=== PATIENT | male | born 1950 | race Caucasian/White ===

== ENCOUNTER → 2018-06-27 | Outpatient (CLI) | payer MEDICARE ==
--- NOTE | 2018-06-27 11:52 | ECHOS ---
STRESS ECHOCARDIOGRAM INDICATIONS: Palpitations/shortness of breath. MEDICATIONS: Levothyroxine. BASELINE HEART RATE: 64 BASELINE BLOOD PRESSURE: 141/76 MAXIMUM HEART RATE: 138 MAXIMUM BLOOD PRESSURE: 194/63 85% MPHR: 128 100% MPHR: 150 METS: 7.7 MAXIMUM STAGE REACHED: 3 TOTAL EXERCISE TIME: 6:30 CLINICAL INFORMATION: Baseline EKG shows sinus rhythm, normal axis, normal intervals. Patient exercised on Donn protocol for a total of 6.5 minutes achieving 8 METs, 92% of predicted maximal heart rate without chest pain or diagnostic ST-segment depression. Baseline echo shows normal left ventricular size wall motion systolic function. Postexercise, there is normal hyperdynamic response of all segments of myocardium noted and contrast agent was used to improve endocardial visualization. CONCLUSION: 1. Above-average exercise tolerance. 2. Negative stress test by EKG criteria. 3. Negative stress echo. MMREMINGTONL / IJN: [id number] /
--- NOTE | 2018-06-27 12:51 | ECHOF ---
Referral Reason:R00.2 Palpitations MEASUREMENTS -------- HEIGHT: 190.5 cm WEIGHT: 127.0 kg BP: 141/76 RVIDd: 2.8 cm (< 3.3) IVSd: 1.1 cm (0.6 - 1.1) LVIDd: 4.5 cm (3.9 - 5.3) LVPWd: 1.1 cm (0.6 - 1.1) IVSs: 1.3 cm LVIDs: 2.4 cm LVPWs: 1.3 cm LAESV Index (A-L): 29.92 ml/m Ao Diam: 4.5 cm (2.0 - 3.7) AV Cusp: 2.5 cm (1.5 - 2.6) LA Diam: 4.1 cm (2.7 - 3.8) MV E Johnathan: 0.64 m/s MV DecT: 253 ms MV A Johnathan: 0.52 m/s MV E/A Ratio: 1.22 AR PHT: 693 ms RAP: 5.00 mmHg RVSP: 23.84 mmHg FINDINGS -------- Sinus rhythm. This was a technically difficult study with suboptimal views. The left ventricular size is normal. There is borderline concentric left ventricular hypertrophy. Overall left ventricular systolic function is normal with, an EF between 55 - 60 %. The right ventricle is normal in size and function. LA is midly dilated 29-33ml/m2. The right atrium is normal in size. 5 ml of Lumason was utilized for enhancement of images. Aortic valve is trileaflet and is mildly thickened. There is mild aortic regurgitation. There is no evidence of aortic stenosis. The mitral valve leaflets are mildly thickened. There is trace to mild mitral regurgitation. Trace tricuspid regurgitation present. Right ventricular systolic pressure is normal at < 35 mmHg. There is no evidence of pulmonary hypertension. Trace/mild (physiologic) pulmonic regurgitation. The aortic root is mildy dilated, up to 4.0 cm. IVC Not well visulized. There is no pericardial effusion. CONCLUSIONS -------- 1. Sinus rhythm. 2. This was a technically difficult study with suboptimal views. 3. The left ventricular size is normal. 4. There is borderline concentric left ventricular hypertrophy. 5. Overall left ventricular systolic function is normal with, an EF between 55 - 60 %. 6. LA is midly dilated 29-33ml/m2. 7. 5 ml of Lumason was utilized for enhancement of images. 8. Aortic valve is trileaflet and is mildly thickened. 9. There is mild aortic regurgitation. 10. The mitral valve leaflets are mildly thickened. 11. There is trace to mild mitral regurgitation. 12. Trace tricuspid regurgitation present. 13. Right ventricular systolic pressure is normal at < 35 mmHg. 14. There is no evidence of pulmonary hypertension. 15. Trace/mild (physiologic) pulmonic regurgitation. 16. The aortic root is mildy dilated, up to 4.0 cm. 17. IVC Not well visulized. 18. There is no pericardial effusion. CANDLE CUTTER: Napoleon Avila RDCS
== END | disposition home or self-care (01) ==
LOC: RADECHMAIN 09:37
PROVIDERS: ATTEND Family Medicine
DX: I08.0 Rheumatic disorders of both mitral and aortic valves (principal); R00.2 Palpitations
CPT/HCPCS: C8929; C8930; Q9950; 93306; 93351

== ENCOUNTER → 2018-07-18 | Outpatient (CLI) | payer MEDICARE ==
--- NOTE | 2018-07-26 15:01 | HM ---
HOLTER MONITOR REPORT Patient was monitored for 24 hours. Baseline rhythm is a sinus mechanism with normal conduction. The average rate is 64 beats per minute, minimum 45. Maximum 106 beats per minute. Ventricular ectopic activity was present in the form of rare single PVCs. Supraventricular ectopic activity was present form of rare single PACs. Episode of ectopic atrial rhythm was noted. Symptoms of atrial flutter did not correlate with any dysrhythmia. CONCLUSION: 1. Sinus mechanism baseline rhythm. 2. Rare ventricular ectopic activity. 3. Rare supraventricular ectopic activity. 4. Symptoms did not correlate with any dysrhythmia. MMODL / IJN: [id number] /
== END | disposition home or self-care (01) ==
LOC: RADECHMAIN 11:39
PROVIDERS: ATTEND Family Medicine
DX: R00.2 Palpitations (principal)
CPT/HCPCS: 93225; 93226

== ENCOUNTER → 2020-05-08 | Outpatient (CLI) | payer MEDICARE ==
--- NOTE | 2020-05-08 11:50 | XR ---
EXAMINATION TYPE: XR lumbar spine 2 or 3V DATE OF EXAM: 05/08/2020 CLINICAL HISTORY: pain TECHNIQUE: Three views of the lumbar spine are submitted. COMPARISON: None. FINDINGS: There are 5 lumbar type vertebral bodies identified. The lumbar spine shows satisfactory alignment w ithout evidence of acute fracture or dislocation. Vertebral body heights are within normal limits. Severe degenerative changes. IMPRESSION: No acute fracture or dislocation is seen in the lumbar spine. ICD 10 NO FRACTURE, INITIAL EVALUATION
== END | disposition home or self-care (01) ==
LOC: RADXRMAIN 11:25
PROVIDERS: ATTEND Nurse Practitioner
DX: M54.41 Lumbago with sciatica, right side (principal)
CPT/HCPCS: 72100